=== PATIENT | female | born 1985 | race Caucasian/White ===

== ENCOUNTER 2018-07-16 08:11 | Outpatient (CLI) | payer OTHER ==
[2018-07-16] MEDS ORDERED: ISOVUE-370 76%-LOCM 1 ML ONE (09:21)
--- NOTE | 2018-07-16 09:28 | CT ---
CT ABDOMEN AND PELVIS WITH AND WITHOUT CONTRAST: HISTORY: Gross hematuria. Left flank pain. COMPARISON: Outside facility CT from 2013. FINDINGS: Lung bases are clear. No pericardial effusion. There is a large calculus within the left renal pelvis measuring 5 x 6 x 6 mm. The last renal pelvis was dilated. Within the inferior pole of the left kidney is a 2 x 2 mm calculus. Also at the infer ior pole left kidney is a 2 x 3 mm calculus. There is a 5 x 6 mm calculus inferior right renal colle cting system. Multiple bilateral renal cysts. There is no hydroureter. No hydronephrosis. No calculi within the urinary bladder. Multiple phleboliths in the pelvis. No dilated loops of large or small bowel. The pancreas is unremarkable as well as the spleen, liver, and gallbladder. No retroperitoneal adenopathy. Mild hyperenhancement of the left renal pelvis. IMPRESSION: 1. Bilateral nephrolithiasis without evidence of obstructive uropathy. 2. Mildly dilated bilateral renal pelves. 3. Small bilateral renal cysts. 4. Mild hyperenhancement of the left renal pelvis can be seen with the recently passed stone. No pe rinephric stranding or asymmetric enhancement. 5. No calculus within the urinary bladder. POS: [facility]
== END 2018-07-16 08:12 | disposition home or self-care (01) ==
LOC: BICCT 08:11
PROVIDERS: ATTEND Family Medicine
DX: R31.0 Gross hematuria (principal); N28.1 Cyst of kidney, acquired; N20.0 Calculus of kidney
CPT/HCPCS: 74178; Q9966

== ENCOUNTER 2018-09-04 11:33 | Outpatient (CLI) | payer OTHER ==
--- NOTE | 2018-09-04 11:56 | RAD ---
KUB: HISTORY: Calculus of kidney FINDINGS: The large calculi in the kidneys noted on the CT scan of 07/16/2018 are again seen in the projection of the left renal pelvis and the right inferior pole. Multiple pelvic phleboliths are present.
== END 2018-09-04 11:34 | disposition home or self-care (01) ==
LOC: BICRAD 11:33
PROVIDERS: ATTEND Urology
DX: N20.0 Calculus of kidney (principal); I87.8 Other specified disorders of veins
CPT/HCPCS: 74018